=== PATIENT | female | born 1970 | race African-American/Black ===

== ENCOUNTER 2018-05-17 09:07 | Outpatient (CLI) | payer BC ==
--- NOTE | 2018-05-17 10:48 | ULT ---
RIGHT BREAST ULTRASOUND: HISTORY: Complex cyst at the 10 o'clock position of the right breast seen on prior mammography. COMPARISON: 11/19/2017. TECHNIQUE: Multiplanar, casey scale, and color Doppler images were obtained in a right breast ultrasound. FINDINGS: There is a well-circumscribed hypoechoic cyst at the 10 o'clock position of the right breast. Increa sed through transmission is seen. A few internal echoes are seen and this likely represents debris w ithin the cyst. This is stable compared to the prior examination. No suspicious shadowing is seen. IMPRESSION: BIRADS category 2 - benign findings. Annual screening mammography is recommended. The patient is du e for annual mammography in November of 2018. POS: [facility]
== END 2018-05-17 09:08 | disposition home or self-care (01) ==
LOC: BICMAMMO 09:07
PROVIDERS: ATTEND Family Medicine
DX: N60.09 Solitary cyst of unspecified breast (principal); N63.11 Unspecified lump in the right breast, upper outer quadrant
CPT/HCPCS: G0279

== ENCOUNTER 2021-03-22 08:16 | Outpatient (CLI) | payer MEDICAID, OTHER | END 2021-03-22 08:17 | disposition home or self-care (01) | LOC: RAD 08:16 | PROVIDERS: ATTEND Internal Medicine Pulmonary Disease | DX: R06.00 Dyspnea, unspecified (principal) | CPT/HCPCS: 71046 ==

== ENCOUNTER 2024-11-10 11:02 | Outpatient (CLI) | payer OTHER, MEDICAID | END 2024-11-10 11:03 | disposition home or self-care (01) | LOC: ULT 11:02 | PROVIDERS: ATTEND Student in an Organized Health Care Education/Training Program | DX: M79.89 Other specified soft tissue disorders (principal) ==